=== PATIENT | female | born 1995 | race Caucasian/White ===

== ENCOUNTER 2024-01-22 11:41 | Emergency (ER) | payer OTHER ==
[~2024-01-22] VITALS: Ht 167.6 cm; Wt 105.7 kg
[2024-01-22 12:28] VITALS: BP 118/72; PULSE 74; RESP 18; TEMP 98.4; O2SAT 100
[2024-01-22 13:41] VITALS: BP 116/70; PULSE 72; RESP 18; TEMP 98.3; O2SAT 100
[2024-01-22] MEDS ORDERED: CEPH-588 PO (13:46)
[2024-01-22] MEDS ORDERED: LORA10TA19 PO (13:46)
[2024-01-22] MEDS: DEXAMETHASONE 10 MG/ML VIAL IM ONE (13:59)
[2024-01-22] MEDS: LORATADINE 10 MG TAB PO ONE (14:00)
== END 2024-01-22 13:53 | disposition home or self-care (01) ==
LOC: MED 11:41
DX: L50.9 Urticaria, unspecified (principal); Z79.899 Other long term (current) drug therapy
CPT/HCPCS: 81025; 96372; 99283; J1100